=== PATIENT | female | born 1970 | race Caucasian/White ===

== ENCOUNTER 2024-01-25 16:27 | Emergency (ER) | payer OTHER ==
[~2024-01-25] VITALS: Ht 160 cm; Wt 59.0 kg
[2024-01-25 16:39] VITALS: BP 118/68; PULSE 84; RESP 18; TEMP 97.1; O2SAT 97
[2024-01-25] MEDS ORDERED: CYCL-711 PO (18:55)
[2024-01-25] MEDS ORDERED: IBUP-2213 PO (18:55)
[2024-01-25] MEDS ORDERED: DICL100G32 TP (18:55)
[2024-01-25] MEDS: KETOROLAC 30 MG/ML VIAL IM ONE (19:07)
== END 2024-01-25 19:26 | disposition home or self-care (01) ==
LOC: MED 16:27
DX: M54.42 Lumbago with sciatica, left side (principal); F17.210 Nicotine dependence, cigarettes, uncomplicated; Z79.899 Other long term (current) drug therapy
CPT/HCPCS: 81025; 96372; 99283; J1885